=== PATIENT | female | born 1980 | race African-American/Black ===

== ENCOUNTER 2016-03-15 01:34 | Emergency (ER) | payer SELFPAY ==
[~2016-03-15] VITALS: Ht 170.2 cm; Wt 131.5 kg
[~2016-03-15 01:34] MED LIST: HYDR-2666 PO; HYDR12.53 PO; HYDR50TA6 PO; IBUP100T8 PO; METF500T4 PO; RIVA10TA PO
[2016-03-15 02:03] LABS: BASO % 0 % (0-3); EOS % 2 % (0-3); HEMATOCRIT 36.8 % (36.0-47.0); HEMOGLOBIN 11.6 g/dL (12.0-15.5); LYMPH # 2.2 x10^3/uL (1.0-4.8); LYMPH % 39 % (24-48); MEAN CORPUSCULAR HEMOGLOBIN 24 pg (25-35); MEAN CORPUSCULAR HGB CONC 32 g/dL (31-37); MEAN CORPUSCULAR VOLUME 77 fL (79-100); MONO % 8 % (0-9); NEUT % 51 % (31-73); PLATELET COUNT 291 x10^3/uL (140-400); RED BLOOD COUNT 4.77 x10^6/uL (3.50-5.40); RED CELL DISTRIBUTION WIDTH 15.8 % (11.5-14.5); WHITE BLOOD COUNT 5.6 x10^3/uL (4.0-11.0)
[2016-03-15 02:15] LABS: CALCIUM 8.1 mg/dL (8.5-10.1); GFR 76.8; POTASSIUM 3.3 mmol/L (3.5-5.1)
[2016-03-15] MEDS ORDERED: methylPREDNISolone SOD SUCC PF 125 MG/2 ML VIAL. IV ONE (02:15)
[2016-03-15] MEDS ORDERED: AZIT1PAC7 PO (04:11)
[2016-03-15] MEDS ORDERED: PRED50TA PO (04:11)
[2016-03-15] MEDS ORDERED: BENZ100C PO (04:11)
--- NOTE | 2016-03-15 04:11 | PHYS DOC ---
Past Medical History Past Medical History: Asthma, Bronchitis, Diabetes-Type II, Hypertension, Migraines, Pneumonia Additional Past Medical Histor: pneumonia Past Surgical History: Cholecystectomy, , Tubal ligation, Other Additional Past Surgical Histo: d & c Alcohol Use: None Drug Use: None Adult General Chief Complaint Chief Complaint: ASTHMA HPI HPI This is a 35 old female who states she's had persisting cough for the last several days and worsening of her asthma. Patient states she has never been intubated before. She does state she has been hospitalized once for her asthma. She has been using her breathing treatments at home with only mild relief. She denies any chest pain. She denies any fever or chills. She is having difficulty speaking complete sentences and is in moderate respiratory distress. Review of Systems Review of Systems Constitutional: Denies fever or chills [] Eyes: Denies change in visual acuity, redness, or eye pain [] HENT: Denies nasal congestion or sore throat [] Respiratory: Has cough, has shortness of breath [] Cardiovascular: No additional information not addressed in HPI [] GI: Denies abdominal pain, nausea, vomiting, bloody stools or diarrhea [] : Denies dysuria or hematuria [] Musculoskeletal: Denies back pain or joint pain [] Integument: Denies rash or skin lesions [] Neurologic: Denies headache, focal weakness or sensory changes [] Endocrine: Denies polyuria or polydipsia [] Current Medications Current Medications Current Medications Medications (Trade) Dose Ordered Sig/Octavio Start Time Stop Time Status Last Admin Dose Admin Methylprednisolone Sodium Succinate (Solu-Medrol 125mg Vial) 125 mg 1X ONCE 03/15/16 02:15 03/15/16 02:16 DC 03/15/16 02:47 125 MG Allergies Allergies Allergies Coded Allergies Type Severity Reaction Last Updated Verified Penicillins Allergy Intermediate Rash 01/20/15 No amoxicillin Allergy Intermediate 01/20/15 Yes morphine Allergy Intermediate 01/20/15 Yes diphenhydramine HCl Adverse Reaction Intermediate rash on iv area 09/22/15 No Physical Exam Physical Exam Constitutional: Well developed, well nourished, no acute distress, non-toxic appearance. [] HENT: Normocephalic, atraumatic, bilateral external ears normal, oropharynx moist, no oral exudates, nose normal. [] Eyes: PERRLA, EOMI, conjunctiva normal, no discharge. [] Neck: Normal range of motion, no tenderness, supple, no stridor. [] Cardiovascular:Heart rate regular rhythm, no murmur [] Lungs & Thorax: Tachynpea, moderate respiratory distress, diffuse expiratory wheezing bilaterally [] Abdomen: Bowel sounds normal, soft, no tenderness, no masses, no pulsatile masses. [] Skin: Warm, dry, no erythema, no rash. [] Back: No tenderness, no CVA tenderness. [] Extremities: No tenderness, no cyanosis, no clubbing, ROM intact, no edema. [] Neurologic: Alert and oriented X 3, normal motor function, normal sensory function, no focal deficits noted. [] Psychologic: Affect normal, judgement normal, mood normal. [] Current Patient Data Vital Signs Vital Signs Date Time Temp Pulse Resp B/P Pulse Ox O2 Delivery O2 Flow Rate FiO2 03/15/16 04:15 68 117/56 98 Room Air 03/15/16 03:30 15 03/15/16 01:55 2.0 03/15/16 01:45 98.1 98.1 Lab Values Laboratory Tests Test 03/15/16 01:45 03/15/16 02:40 White Blood Count 5.6x10^3/uL (4.0-11.0) Red Blood Count 4.77x10^6/uL (3.50-5.40) Hemoglobin 11.6g/dL (12.0-15.5) L Hematocrit 36.8% (36.0-47.0) Mean Corpuscular Volume 77fL (79-100) L Mean Corpuscular Hemoglobin 24pg (25-35) L Mean Corpuscular Hemoglobin Concent 32g/dL (31-37) Red Cell Distribution Width 15.8% (11.5-14.5) H Platelet Count 291x10^3/uL (140-400) Neutrophils (%) (Auto) 51% (31-73) Lymphocytes (%) (Auto) 39% (24-48) Monocytes (%) (Auto) 8% (0-9) Eosinophils (%) (Auto) 2% (0-3) Basophils (%) (Auto) 0% (0-3) Neutrophils # (Auto) 2.8x10^3uL (1.8-7.7) Lymphocytes # (Auto) 2.2x10^3/uL (1.0-4.8) Monocytes # (Auto) 0.5x10^3/uL (0.0-1.1) Eosinophils # (Auto) 0.1x10^3/uL (0.0-0.7) Basophils # (Auto) 0.0x10^3/uL (0.0-0.2) Sodium Level 142mmol/L (136-145) Potassium Level 3.3mmol/L (3.5-5.1) L Chloride Level 106mmol/L (98-107) Carbon Dioxide Level 25mmol/L (21-32) Anion Gap 11 (6-14) Blood Urea Nitrogen 13mg/dL (7-20) Creatinine 1.0mg/dL (0.6-1.0) Estimated GFR (Cockcroft-Gault) 76.8 Glucose Level 103mg/dL (70-99) H Calcium Level 8.1mg/dL (8.5-10.1) L Urine Test Negative (NEG) Laboratory Tests 03/15/16 01:45 Laboratory Tests 03/15/16 01:45 EKG EKG [] Radiology/Procedures Radiology/Procedures One view of the chest as interpreted by me does not reveal an acute cardiopulmonary process. Course & Med Decision Making Course & Med Decision Making Pertinent Labs and Imaging studies reviewed. (See chart for details) This 35-year-old female who is a known asthmatic and in moderate respiratory distress was put on a continuous nebulizer for one hour and felt much improved following the laser treatment. Patient was given 125 mg Solu-Medrol. Upon my reassessment after nebulizer treatment the patient feels much more improved and is relaxed and able to speak in complete sentences without any obvious respiratory distress. She states she feels comfortable to go home. She is saturating 100% on room air. I will discharge the patient home with a short course of steroids, Z-shanell, and tessalon perles for her cough. Her laboratory work up was unrevealing and her chest film was negative for any acute abnormality. She was discharged to follow closely with her primary doctor in the next several days. Dragon Disclaimer Dragon Disclaimer This electronic medical record was generated, in whole or in part, using a voice recognition dictation system. Departure Departure Impression: Primary Impression: Asthma exacerbation Disposition: HOME, SELF-CARE Condition: IMPROVED Referrals: SPIKE GREEN MD (PCP) Patient Instructions: Asthma, Adult, [id number] Additional Instructions: Please follow up with your primary doctor and take your steroids as prescribed. Return to the ER if you develop any worsening of your symptoms. Continue to use your nebulizer and inhaler as needed. Scripts Benzonatate (Tessalon Perle)100 Mg [id number] Mg PO TID PRN COUGH #15 CAP Prov:SRAVANTHI BAÑUELOS DO 03/15/16 Azithromycin (Azithromycin Packet)1 Gm Packet1 Packet PO ONCE #1 PACKET Prov:SRAVANTHI BAÑUELOS DO 03/15/16 Prednisone 50 Mg Tablet1 Tab PO DAILY #5 TAB Prov:SRAVANTHI BAÑUELOS DO 03/15/16 SRAVANTHI BAÑUELOS DO Mar 15, 2016 04:11
[2016-03-15 04:15] VITALS: BP 117/56
[2016-03-15 04:28] LABS: NEG OBC UR NEG; POS OBC UR POS
--- NOTE | 2016-03-15 07:45 | RAD ---
Indication shortness of breath. Asthma. A single view of the chest was obtained. Comparison is made to a study 2 months earlier. Heart and pulmonary vessels are normal. The lungs are clear. There has not been a significant change compared to the prior exam. IMPRESSION: No acute or focal process. No significant change
== END 2016-03-15 04:25 | disposition home or self-care (01) ==
LOC: ER 01:34
DX: J45.901 Unspecified asthma with (acute) exacerbation (principal); E11.9 Type 2 diabetes mellitus without complications; I10 Essential (primary) hypertension; G43.909 Migraine, unspecified, not intractable, without status migrainosus; Z87.01 Personal history of pneumonia (recurrent); Z90.49 Acquired absence of other specified parts of digestive tract; Z98.51 Tubal ligation status; Z88.0 Allergy status to penicillin; Z88.1 Allergy status to other antibiotic agents; Z88.5 Allergy status to narcotic agent; Z88.8 Allergy status to other drugs, medicaments and biological substances
CPT/HCPCS: 36415; 71010; 80048; 81025; 85027; 94644; 96374; 99285; J2930; 94640

== ENCOUNTER 2016-04-18 23:27 | Emergency (ER) | payer OTHER ==
[~2016-04-18] VITALS: Ht 165.1 cm; Wt 131.5 kg
[~2016-04-18 23:27] MED LIST changes: +AZIT1PAC7 PO; +BENZ100C PO; +HYDR-971 PO; +NITR100C62 PO; +PRED50TA PO
[2016-04-19] MEDS ORDERED: FENTANYL PF 100 MCG/2 ML VIAL. IV ONE (00:15)
[2016-04-19] MEDS ORDERED: PROCHLORPERAZINE 10 MG/2 ML VIAL. IV ONE (00:15)
[2016-04-19] MEDS ORDERED: KETOROLAC TROMETHAMINE 30 MG/ML SYRINGE. IV ONE (00:15)
--- NOTE | 2016-04-19 00:47 | PHYS DOC ---
Past Medical History Past Medical History: Asthma, Bronchitis, Diabetes-Type II, Hypertension, Migraines, Pneumonia Additional Past Medical Histor: pneumonia Past Surgical History: Cholecystectomy, , Tubal ligation, Other Additional Past Surgical Histo: d & c Alcohol Use: None Drug Use: None Adult General Chief Complaint Chief Complaint: HEADACHE HPI HPI Patient is a 35 year old female who presents with intermittent headache for the past 1.5 week. States this headache is gradual in onset and returned after workup and treatment 2 days ago. She did have a period of improvement 2 days ago after evaluation and treatment here. She has associated photophobia and mild dizziness. States the symptoms are typical of her migraine symptoms. She denies vision changes, fever or chills, nausea or vomiting, numbness, tingling, weakness. States her symptoms are not resolved with home hydrocodone or ibuprofen. States she was not able to get in with her primary care doctor or neurologist for another week. Review of Systems Review of Systems Constitutional: Denies fever or chills [] Eyes: Denies change in visual acuity, redness, or eye pain [] HENT: Denies nasal congestion or sore throat [] Respiratory: Denies cough or shortness of breath [] Cardiovascular: No additional information not addressed in HPI [] GI: Denies abdominal pain, nausea, vomiting, bloody stools or diarrhea [] : Denies dysuria or hematuria [] Musculoskeletal: Denies back pain or joint pain [] Integument: Denies rash or skin lesions [] Neurologic: Denies focal weakness or sensory changes [] Endocrine: Denies polyuria or polydipsia [] Current Medications Current Medications Current Medications Medications (Trade) Dose Ordered Sig/Octavio Start Time Stop Time Status Last Admin Dose Admin Fentanyl Citrate (Fentanyl 2ml Vial) 75 mcg 1X ONCE 04/19/16 00:15 04/19/16 00:16 DC 04/19/16 00:41 75 MCG Ketorolac Tromethamine (Toradol) 15 mg 1X ONCE 04/19/16 00:15 04/19/16 00:16 DC 04/19/16 00:42 15 MG Prochlorperazine Edisylate (Compazine) 10 mg 1X ONCE 04/19/16 00:15 04/19/16 00:16 DC 04/19/16 00:42 10 MG Allergies Allergies Allergies Coded Allergies Type Severity Reaction Last Updated Verified Penicillins Allergy Intermediate Rash 01/20/15 No amoxicillin Allergy Intermediate 01/20/15 Yes morphine Allergy Intermediate 01/20/15 Yes diphenhydramine HCl Adverse Reaction Intermediate rash on iv area 09/22/15 No Physical Exam Physical Exam Constitutional: Well developed, well nourished, no acute distress, non-toxic appearance. [] HENT: Normocephalic, atraumatic, bilateral external ears normal, oropharynx moist, no oral exudates, nose normal. [] Eyes: PERRLA, EOMI. [] Neck: Normal range of motion, supple. [] Cardiovascular:Heart rate regular rhythm [] Lungs & Thorax: Bilateral breath sounds clear to auscultation [] Abdomen: Bowel sounds normal, soft, no tenderness. [] Skin: Warm, dry, no erythema, no rash. [] Back: Normal range of motion. [] Extremities: ROM intact, no edema. Ambulatory with a steady gait [] Neurologic: Alert and oriented X 3, normal motor function, normal sensory function, no focal deficits noted, cranial nerves II through XII intact, normal finger to nose. [] Psychologic: Affect normal, judgement normal, mood normal. [] Current Patient Data Vital Signs Vital Signs Date Time Temp Pulse Resp B/P Pulse Ox O2 Delivery O2 Flow Rate FiO2 04/19/16 00:41 16 04/18/16 23:44 98.3 57 103/54 96 Room Air 98.3 Course & Med Decision Making Course & Med Decision Making She is feeling much better after medications and would like to go home. Return precautions given. She understands and agrees with plan. Dragon Disclaimer Sheri Disclaimer This electronic medical record was generated, in whole or in part, using a voice recognition dictation system. Departure Departure Impression: Primary Impression: Headache Disposition: 01 HOME, SELF-CARE Condition: STABLE Referrals: SPIKE GREEN MD (PCP) Patient Instructions: Recurrent Migraine Headache, [id number] Additional Instructions: Follow-up with your primary care doctor and neurologist. Return for concerns. Problem Qualifiers Primary Impression: Headache Headache type: unspecified Headache chronicity pattern: episodic headache Intractability: not intractable Qualified Code: R51 - Headache Bo SILVA MD Apr 19, 2016 00:47
[2016-04-19 01:43] VITALS: BP 100/59
== END 2016-04-19 01:50 | disposition home or self-care (01) ==
LOC: ER 23:27
DX: R51 Headache (principal); R42 Dizziness and giddiness; H53.149 Visual discomfort, unspecified; G43.909 Migraine, unspecified, not intractable, without status migrainosus; E11.9 Type 2 diabetes mellitus without complications; I10 Essential (primary) hypertension; J45.909 Unspecified asthma, uncomplicated; Z88.0 Allergy status to penicillin; Z88.1 Allergy status to other antibiotic agents; Z88.8 Allergy status to other drugs, medicaments and biological substances
CPT/HCPCS: 96374; 96375; 99284; J0780; J1885; J3010

== ENCOUNTER 2016-06-14 19:13 | Emergency (ER) | payer OTHER ==
[~2016-06-14] VITALS: Ht 162.6 cm; Wt 131.5 kg
[2016-06-14] MEDS ORDERED: PREDNISONE 10 MG TABLET PO ONE (19:15)
[2016-06-14] MEDS ORDERED: IPRATRPIUM/ALBUTEROL 0.5/2.5MG 3 ML NEBU. NEB ONE (19:15)
[2016-06-14] MEDS ORDERED: ALBUTEROL SULFATE 2.5 MG/3 ML NEBU. ONE (19:20)
[2016-06-14 19:31] LABS: BASO # 0.1 x10^3/uL (0.0-0.2); BASO % 1 % (0-3); EOS % 2 % (0-3); HEMATOCRIT 36.5 % (36.0-47.0); HEMOGLOBIN 11.5 g/dL (12.0-15.5); LYMPH # 3.4 x10^3/uL (1.0-4.8); LYMPH % 42 % (24-48); MEAN CORPUSCULAR HEMOGLOBIN 24 pg (25-35); MEAN CORPUSCULAR HGB CONC 32 g/dL (31-37); MEAN CORPUSCULAR VOLUME 77 fL (79-100); MONO % 6 % (0-9); NEUT % 50 % (31-73); PLATELET COUNT 300 x10^3/uL (140-400); RED BLOOD COUNT 4.76 x10^6/uL (3.50-5.40); RED CELL DISTRIBUTION WIDTH 15.2 % (11.5-14.5); WHITE BLOOD COUNT 8.1 x10^3/uL (4.0-11.0)
--- NOTE | 2016-06-14 19:33 | PHYS DOC ---
Past Medical History Past Medical History: Asthma, Bronchitis, Diabetes-Type II, Hypertension, Migraines, Pneumonia Additional Past Medical Histor: pneumonia Past Surgical History: Cholecystectomy, , Tubal ligation, Other Additional Past Surgical Histo: d & c Alcohol Use: None Drug Use: None Adult General Chief Complaint Chief Complaint: DYSPNEA/RESPIRATOY DISTRESS HPI HPI 35 yo F with hx of asthma presenting to the ED with soa that started about 24 hours ago. she tried 2 nebs at home without much relief. location lungs. nonradiating. she denies associated chest pain. it is worse with exertion. She denies ever being intubated. Review of systems is negative for abdominal pain nausea vomiting fevers or chills. All other review of systems is negative unless otherwise noted in history of present illness. Review of Systems Review of Systems SEE ABOVE. Current Medications Current Medications Current Medications Medications (Trade) Dose Ordered Sig/Octavio Start Time Stop Time Status Last Admin Dose Admin Albuterol Sulfate (Ventolin Neb Soln) 10 mg 1X ONCE 06/14/16 19:45 06/14/16 19:46 DC 06/14/16 19:52 10 MG Albuterol/ Ipratropium (Duoneb) 3 ml 1X ONCE 06/14/16 19:15 06/14/16 19:17 DC 06/14/16 19:31 3 ML Prednisone (Prednisone) 50 mg 1X ONCE 06/14/16 19:15 06/14/16 19:17 DC 06/14/16 19:24 50 MG Allergies Allergies Allergies Coded Allergies Type Severity Reaction Last Updated Verified Penicillins Allergy Intermediate Rash 01/20/15 No amoxicillin Allergy Intermediate 01/20/15 Yes morphine Allergy Intermediate 01/20/15 Yes diphenhydramine HCl Adverse Reaction Intermediate rash on iv area 09/22/15 No Physical Exam Physical Exam Constitutional: Well developed, well nourished, pt is visibly dyspneic and is only speaking in one word sentences. HENT: Normocephalic, atraumatic, bilateral external ears normal, oropharynx moist, no oral exudates, nose normal. Eyes: PERRLA, EOMI, conjunctiva normal, no discharge. [] Neck: Normal range of motion, no tenderness, supple, no stridor. Cardiovascular:Heart rate regular rhythm, no murmur Lungs & Thorax: minimal breath sounds present with prolonged expiratory phase. Abdomen: Bowel sounds normal, soft, no tenderness, no masses, no pulsatile masses. Skin: Warm, dry, no erythema, no rash. [] Back: No tenderness, no CVA tenderness. Extremities: No tenderness, no cyanosis, no clubbing, ROM intact, no edema. [] Neurologic: Alert and oriented X 3, normal motor function, normal sensory function, no focal deficits noted. Psychologic: Affect normal, judgement normal, mood normal. Current Patient Data Vital Signs Vital Signs Date Time Temp Pulse Resp B/P Pulse Ox O2 Delivery O2 Flow Rate FiO2 06/14/16 19:30 95 Nasal Cannula 6.0 06/14/16 19:13 91.1 82 20 112/94 91.1 Lab Values Laboratory Tests Test 06/14/16 19:20 White Blood Count 8.1x10^3/uL (4.0-11.0) Red Blood Count 4.76x10^6/uL (3.50-5.40) Hemoglobin 11.5g/dL (12.0-15.5) L Hematocrit 36.5% (36.0-47.0) Mean Corpuscular Volume 77fL (79-100) L Mean Corpuscular Hemoglobin 24pg (25-35) L Mean Corpuscular Hemoglobin Concent 32g/dL (31-37) Red Cell Distribution Width 15.2% (11.5-14.5) H Platelet Count 300x10^3/uL (140-400) Neutrophils (%) (Auto) 50% (31-73) Lymphocytes (%) (Auto) 42% (24-48) Monocytes (%) (Auto) 6% (0-9) Eosinophils (%) (Auto) 2% (0-3) Basophils (%) (Auto) 1% (0-3) Neutrophils # (Auto) 4.1x10^3uL (1.8-7.7) Lymphocytes # (Auto) 3.4x10^3/uL (1.0-4.8) Monocytes # (Auto) 0.5x10^3/uL (0.0-1.1) Eosinophils # (Auto) 0.1x10^3/uL (0.0-0.7) Basophils # (Auto) 0.1x10^3/uL (0.0-0.2) Sodium Level 141mmol/L (136-145) Potassium Level 3.4mmol/L (3.5-5.1) L Chloride Level 105mmol/L (98-107) Carbon Dioxide Level 27mmol/L (21-32) Anion Gap 9 (6-14) Blood Urea Nitrogen 10mg/dL (7-20) Creatinine 1.0mg/dL (0.6-1.0) Estimated GFR (Cockcroft-Gault) 76.8 Glucose Level 115mg/dL (70-99) H Calcium Level 8.7mg/dL (8.5-10.1) Total Bilirubin 0.3mg/dL (0.2-1.0) Direct Bilirubin 0.1mg/dL (0.0-0.2) Aspartate Amino Transferase (AST) 29U/L (15-37) Alanine Aminotransferase (ALT) 30U/L (14-59) Alkaline Phosphatase 54U/L (46-116) Troponin I Quantitative < 0.017ng/mL (0.000-0.055) AI-Krk-C-Type Natriuretic Peptide 113pg/mL (0-124) Total Protein 7.7g/dL (6.4-8.2) Albumin 3.7g/dL (3.4-5.0) Lipase 176U/L (73-393) Laboratory Tests 06/14/16 19:20 Laboratory Tests 06/14/16 19:20 EKG EKG EKG shows sinus rhythm with regular rate. Normal intervals. Normal axis. ST segments are congruent. Not suggestive of ACS. Reviewed by myself.[] Radiology/Procedures Radiology/Procedures [] Course & Med Decision Making Course & Med Decision Making Pertinent Labs and Imaging studies reviewed. (See chart for details) [] 35-year-old female presenting with a severe asthma exacerbation today. The patient was given duo nebs and nebulized albuterol in the emergency department which improved her symptoms significantly. On reevaluation the patient was breathing comfortably on room air saturating 100% without any distress. CBC shows mild anemia. Chemistry panel unremarkable. The patient was in discharged home with a steroid burst to follow up with her PCP over the next 2-3 days for chronic asthma management. Dragon Disclaimer Dragon Disclaimer This electronic medical record was generated, in whole or in part, using a voice recognition dictation system. Departure Departure Impression: Primary Impression: Asthma exacerbation Disposition: HOME, SELF-CARE Referrals: SPIKE GREEN MD (PCP) Patient Instructions: Asthma Attacks, Prevention, Asthma, Adult Additional Instructions: Thank you for allowing us to participate in your care today. Followup with your primary care physician in 3 days if your symptoms do not improve. If you do not have a primary care provider you can ask for a list of our primary care providers. Return to the emergency department you have any new or concerning findings. This should be evaluated by the primary care physician and any necessary consulting services for continued management within a few days after discharge. Return to emergency room if you have any new or concerning symptoms including but not limited to fever, chills, nausea, vomiting, intractable pain, any new rashes, chest pain, shortness of air, uncontrolled bleeding, difficulty breathing, and/or vision loss. Scripts Prednisone 50 Mg [id number] Mg PO DAILY #4 TAB Prov:SEBASTIÁN DAY MD 06/14/16 SEBASTIÁN DAY MD Jun 14, 2016 19:33
[2016-06-14 19:44] LABS: CALCIUM 8.7 mg/dL (8.5-10.1); GFR 76.8; POTASSIUM 3.4 mmol/L (3.5-5.1)
[2016-06-14] MEDS ORDERED: ALBUTEROL SULFATE 2.5 MG/3 ML NEBU. CONT NEB ONE (19:45)
[2016-06-14 19:49] LABS: ALBUMIN 3.7 g/dL (3.4-5.0); DIRECT BILIRUBIN 0.1 mg/dL (0.0-0.2); TOTAL BILIRUBIN 0.3 mg/dL (0.2-1.0); TOTAL PROTEIN 7.7 g/dL (6.4-8.2)
[2016-06-14] MEDS ORDERED: PRED50TA PO (21:26)
[2016-06-14 21:30] VITALS: BP 150/91
--- NOTE | 2016-06-15 06:15 | EKG ---
[facility] [address] [place] [address] Test Date: 2016-06-14 Test Time: 19:28:42 Pat Name: FRANCIA GREEN Department: Room: Gender: F Feed Handler: : 1980 Requested By: SEBASTIÁN DAY Order Number: [id number] Reading MD: Measurements Intervals [place] Rate: 54 P: MO: QRS: 35 QRSD: 80 T: 42 QT: 384 QTc: 366 Interpretive Statements IRREGULAR RHYTHM, NO P-WAVE FOUND RI6.01 No previous ECG available for comparison
--- NOTE | 2016-06-15 07:41 | RAD ---
Exam: AP portable chest. History: Shortness of breath, asthma, chest pain. Comparison: None. Findings: The heart and mediastinal structures are within normal limits for size. Lungs are without infiltrate. No pneumothorax or pleural effusion is appreciated. Impression: 1. No acute cardiopulmonary process.
== END 2016-06-14 22:00 | disposition home or self-care (01) ==
LOC: ER 19:13
DX: J45.901 Unspecified asthma with (acute) exacerbation (principal); D64.9 Anemia, unspecified; E11.9 Type 2 diabetes mellitus without complications; I10 Essential (primary) hypertension; G43.909 Migraine, unspecified, not intractable, without status migrainosus; Z88.0 Allergy status to penicillin; Z88.1 Allergy status to other antibiotic agents; Z88.8 Allergy status to other drugs, medicaments and biological substances; Z88.5 Allergy status to narcotic agent; Z87.01 Personal history of pneumonia (recurrent)
CPT/HCPCS: 36415; 71010; 80048; 80076; 83690; 83880; 84484; 85027; 93005; 94250; 94644; 99285; J7512; J7620; 94640

== ENCOUNTER 2016-07-30 07:13 | Emergency (ER) | payer OTHER ==
[~2016-07-30] VITALS: Ht 167.6 cm; Wt 117.9 kg
--- NOTE | 2016-07-30 07:34 | PHYS DOC ---
Past Medical History Past Medical History: Asthma, Bronchitis, Diabetes-Type II, Hypertension, Migraines, Pneumonia Additional Past Medical Histor: pneumonia Past Surgical History: Cholecystectomy, , Tubal ligation, Other Additional Past Surgical Histo: d & c Alcohol Use: None Drug Use: None Adult General Chief Complaint Chief Complaint: ABDOMINAL PAIN HPI HPI Patient is a 35 year old female presents to the emergency department with a history of suprapubic abdominal pain. Patient also states she has had increase frequency of urination. Patient states she had nausea and vomiting 4 times in the last 24 hours. She denies fever, chills, diarrhea, or vaginal discharge. Patient states this has been going on for the last week denies taking anything for urinary frequency. Patient states she has had back pain as well, denies injury or trauma. Review of Systems Review of Systems Constitutional: Denies fever or chills [] Eyes: Denies change in visual acuity, redness, or eye pain [] HENT: Denies nasal congestion or sore throat [] Respiratory: Denies cough or shortness of breath [] Cardiovascular: No additional information not addressed in HPI [] GI: Denies abdominal pain, nausea, vomiting, bloody stools or diarrhea [] : dysuria denies hematuria [] Musculoskeletal: Denies back pain or joint pain [] Integument: Denies rash or skin lesions [] Neurologic: Denies headache, focal weakness or sensory changes [] Endocrine: Denies polyuria or polydipsia [] Allergies Allergies Allergies Coded Allergies Type Severity Reaction Last Updated Verified Penicillins Allergy Intermediate Rash 01/20/15 No amoxicillin Allergy Intermediate 01/20/15 Yes morphine Allergy Intermediate 01/20/15 Yes diphenhydramine HCl Adverse Reaction Intermediate rash on iv area 09/22/15 No Physical Exam Physical Exam Constitutional: Well developed, well nourished, no acute distress, non-toxic appearance. [] HENT: Normocephalic, atraumatic, bilateral external ears normal, oropharynx moist, no oral exudates, nose normal. [] Eyes: PERRLA, EOMI, conjunctiva normal, no discharge. [] Neck: Normal range of motion, no tenderness, supple, no stridor. [] Cardiovascular:Heart rate regular rhythm, no murmur [] Lungs & Thorax: Bilateral breath sounds clear to auscultation [] Abdomen: Bowel sounds hypoactive, soft, suprapubic tenderness, no masses, no pulsatile masses. [] Skin: Warm, dry, no erythema, no rash. [] Back: No tenderness, right > left CVA tenderness. [] Extremities: No tenderness, no cyanosis, no clubbing, ROM intact, no edema. [] Neurologic: Alert and oriented X 3, normal motor function, normal sensory function, no focal deficits noted. [] Psychologic: Affect normal, judgement normal, mood normal. [] Current Patient Data Vital Signs Vital Signs Date Time Temp Pulse Resp B/P (MAP) Pulse Ox O2 Delivery O2 Flow Rate FiO2 07/30/16 08:26 52 20 128/70 (89) 99 Room Air 07/30/16 07:20 97.6 97.6 Lab Values Laboratory Tests Test 07/30/16 07:20 Urine Collection Type Unknown Urine Color Yellow Urine Clarity Clear Urine pH 6.0 Urine Specific [place] 1.020 Urine Protein Negative mg/dL (NEG-TRACE) Urine Glucose (UA) Negative mg/dL (NEG) Urine Ketones (Stick) Negative mg/dL (NEG) Urine Blood Negative (NEG) Urine Nitrite Negative (NEG) Urine Bilirubin Negative (NEG) Urine Urobilinogen Dipstick 0.2 mg/dL (0.2 mg/dL) Urine Leukocyte Esterase Small (NEG) Urine RBC 0 /HPF (0-2) Urine WBC 5-10 /HPF (0-4) Urine Squamous Epithelial Cells Mod /LPF Urine Bacteria Moderate /HPF (0-FEW) EKG EKG [] Radiology/Procedures Radiology/Procedures [] Course & Med Decision Making Course & Med Decision Making Pertinent Labs and Imaging studies reviewed. (See chart for details) Patient is positive for urinary tract infection with small amount of leukocyte Estrace. Patient will be placed on Cipro as she has flank tenderness. She'll also provided with Zofran for nausea and vomiting. Patient will be encouraged to use plenty of fluids such as water and cranberry juice. We'll also recommended avoid cranberry juice cocktail, carbonate beverages, caffeine, citrus fruits and alcohol sees her considered irritants to the bladder. Patient will be discharged home in stable condition. Signs symptoms to return back to emergency department as been provided. [] Dragon Disclaimer Dragon Disclaimer This electronic medical record was generated, in whole or in part, using a voice recognition dictation system. Departure Departure Impression: Primary Impression: Urinary tract infection Disposition: 01 HOME, SELF-CARE Condition: STABLE Referrals: SPIKE GREEN MD (PCP) Patient Instructions: Urinary Tract Infection, [id number] Additional Instructions: Activity as tolerated Medication as prescribed. Drink plenty of fluids such as water, and cranberry juice. Avoid cranberry juice cocktail, carbonate beverages, citrus fruits, alcohol, caffeine, and alcohol. Follow-up with your primary care physician in the next 7-10 days Return to emergency department as needed for signs and symptoms that become worse. Scripts Ondansetron (ZOFRAN ODT) 4 Mg Tab.rapdis 1 TAB SL Q8HRS, #10 TAB Prov: GRACIELA BROWN APRN 07/30/16 Ciprofloxacin Hcl (CIPRO) 500 Mg Tablet 1 TAB PO BID, #14 TAB Prov: GRACIELA BROWN APRN 07/30/16 GRACIELA BROWN APRN July 30, 2016 07:34
[2016-07-30 07:45] LABS: BILIRUBIN,URINE NEGATIVE (NEG); GLUCOSE,URINE NEGATIVE (NEG); NITRITE,URINE NEGATIVE (NEG); PROTEIN,URINE NEGATIVE (NEG-TRACE); UROBILINOGEN,URINE 0.2 mg/dL (0.2 mg/dL)
[2016-07-30 08:03] LABS: BACTERIA,URINE MODERATE /HPF (0-FEW); RBC,URINE 0 /HPF (0-2); SQUAMOUS EPITHELIAL CELL,UR MOD /LPF
[2016-07-30] MEDS ORDERED: CIPR500T94 PO (09:12)
[2016-07-30] MEDS ORDERED: ONDA4TAB10 SL (09:17)
[2016-07-30 09:40] VITALS: BP 112/60
== END 2016-07-30 09:45 | disposition home or self-care (01) ==
LOC: ER 07:13
DX: N39.0 Urinary tract infection, site not specified (principal); I10 Essential (primary) hypertension; E11.9 Type 2 diabetes mellitus without complications; G43.909 Migraine, unspecified, not intractable, without status migrainosus; J45.909 Unspecified asthma, uncomplicated; Z88.0 Allergy status to penicillin; Z88.1 Allergy status to other antibiotic agents; Z88.5 Allergy status to narcotic agent; Z88.8 Allergy status to other drugs, medicaments and biological substances; Z90.49 Acquired absence of other specified parts of digestive tract; Z98.890 Other specified postprocedural states; Z98.51 Tubal ligation status
CPT/HCPCS: 81001; 81025; 87086; 99284

== ENCOUNTER 2016-09-24 13:59 | Emergency (ER) | payer OTHER ==
[~2016-09-24] VITALS: Ht 167.6 cm; Wt 126.1 kg
[~2016-09-24 13:59] MED LIST changes: -AZIT1PAC7 PO; +AZIT1PAC9 PO; +CIPR500T94 PO; -HYDR-2666 PO; +HYDR-2758 PO; +ONDA4TAB10 SL
[2016-09-24 14:53] LABS: BASO % 1 % (0-3); EOS % 2 % (0-3); HEMATOCRIT 37.8 % (36.0-47.0); HEMOGLOBIN 12.1 g/dL (12.0-15.5); LYMPH # 2.4 x10^3/uL (1.0-4.8); LYMPH % 44 % (24-48); MEAN CORPUSCULAR HEMOGLOBIN 25 pg (25-35); MEAN CORPUSCULAR HGB CONC 32 g/dL (31-37); MEAN CORPUSCULAR VOLUME 77 fL (79-100); MONO % 6 % (0-9); NEUT % 48 % (31-73); PLATELET COUNT 233 x10^3/uL (140-400); RED CELL DISTRIBUTION WIDTH 15.7 % (11.5-14.5); WHITE BLOOD COUNT 5.6 x10^3/uL (4.0-11.0)
[2016-09-24] MEDS ORDERED: ALBUTEROL SULFATE 2.5 MG/3 ML NEBU. NEB ONE (15:00)
[2016-09-24 15:06] LABS: BILIRUBIN,URINE NEGATIVE (NEG); GLUCOSE,URINE NEGATIVE (NEG); NITRITE,URINE NEGATIVE (NEG); PH,URINE 6.5; PROTEIN,URINE 30 mg/dL (NEG-TRACE)
--- NOTE | 2016-09-24 15:09 | RAD ---
Indication shortness of breath. Cough. History of asthma. Chronic bronchitis. A single view of the chest was obtained. Comparison is made to an examination 06/14/2016. The heart and pulmonary vessels appear normal. The lungs are clear. There is no pleural fluid or pneumothorax. There has not been a significant change when compared to the previous exam. IMPRESSION: No acute or focal process. No significant change
[2016-09-24 15:17] LABS: CALCIUM 8.2 mg/dL (8.5-10.1); CREATININE 0.9 mg/dL (0.6-1.0); GFR 86.7; POTASSIUM 3.4 mmol/L (3.5-5.1)
[2016-09-24 15:23] LABS: RBC,URINE 0 /HPF (0-2)
[2016-09-24 15:24] LABS: BACTERIA,URINE FEW /HPF (0-FEW); SQUAMOUS EPITHELIAL CELL,UR MOD /LPF
[2016-09-24 15:25] LABS: ALBUMIN 3.7 g/dL (3.4-5.0); DIRECT BILIRUBIN 0.1 mg/dL (0.0-0.2); TOTAL BILIRUBIN 0.3 mg/dL (0.2-1.0); TOTAL PROTEIN 7.4 g/dL (6.4-8.2)
--- NOTE | 2016-09-24 15:39 | EKG ---
[facility] [address] [place] [address] Test Date: 2016-09-24 Test Time: 14:30:01 Pat Name: FRANCIA GREEN Department: Room: Gender: F Professor Of Voice: : 1980 Requested By: SEBASTIÁN DAY Order Number: [id number] Reading MD: Measurements Intervals [place] Rate: 101 P: 90 MD: 146 QRS: 79 QRSD: 76 T: 52 QT: 338 QTc: 439 Interpretive Statements SINUS TACHYCARDIA NO SPECIFIC ECG ABNORMALITIES RI6.01 No previous ECG available for comparison
[2016-09-24] MEDS ORDERED: IOHEXOL 300 MG/ML 75 ML VIAL IV ONE (15:45)
[2016-09-24] MEDS ORDERED: CONTRAST GIVEN MC PRN (15:45)
[2016-09-24] MEDS ORDERED: ACETAMINOPHEN 325 MG TABLET. PO ONE (16:00)
--- NOTE | 2016-09-24 16:09 | RAD ---
Indication right lower quadrant pain. Nausea and vomiting. Duration of symptoms for weeks. Axial images of the abdomen and pelvis were obtained. Approximately 75 cc of Omnipaque 300 was administered intravenously. No oral contrast was administered. No prior CT imaging of the abdomen or pelvis is available. The lung bases are clear. The liver and spleen appear unremarkable. Clips are seen in the gallbladder fossa. No adrenal masses are seen. There is a low-density mass associated with the right kidney most compatible with a small cyst. No pancreatic pathology is seen. An acute finding in the abdomen is not apparent. The appendix is seen in the right lower quadrant and appears unremarkable. Acute or significant finding in the pelvis is not seen. IMPRESSION: No acute finding seen in the abdomen or pelvis
--- NOTE | 2016-09-24 16:35 | PHYS DOC ---
Past Medical History Past Medical History: Asthma, Bronchitis, Diabetes-Type II, Hypertension, Migraines, Pneumonia Additional Past Medical Histor: pneumonia Past Surgical History: Cholecystectomy, , Tubal ligation, Other Additional Past Surgical Histo: d & c Alcohol Use: Occasionally Drug Use: Marijuana Social History Narrative: daily use Adult General Chief Complaint Chief Complaint: SHORTNESS OF BREATH HPI HPI 35-year-old female presenting to the emergency department today with chest pain shortness of breath and abdominal pain in her right lower quadrant associated with nausea and vomiting. The pain in her chest is sharp moderate intermittent nonradiating without alleviating factors. The patient denies unilateral leg swelling hemoptysis family or personal history of blood clotting disorders. The pt denies recent immobilization or surgery. She also reports a history of a swollen appendix. She has been coughing and has a pleuritic chest pain. Review of systems is positive for chest pain shortness of breath abdominal pain nausea vomiting. neg for fevers chills confusion lethargy cyanosis or numbness weakness or tingling. All other review of systems is negative unless otherwise noted in history of present illness. ED course: 35-year-old female presenting to the emergency department today with multiple complaints. Afebrile with mildly fast heart rate however the patient is anxious appearing. Respiratory rate recorded at 28. This is a voluntary respiratory rate. She is not dyspneic on appearance. She appears to be anxious. Saturating well with mild hypertension. EKG unremarkable. Abdomen mild tachycardia.EKG shows sinus rhythm with mildly tachy rate. Normal intervals. Normal axis. ST segments are congruent. Not suggestive of ACS. Reviewed by myself. Chest x-ray unremarkable CT the abdomen pelvis negative. Blood work unremarkable. Patient received a DuoNeb in the emergency department. On reexamination she was feeling better and subsequent discharged home. The patient was then discharged home in stable condition to follow up with their primary care physician over the next 2-3 days. They were to return if their symptoms worsened or if they were concerned for any reason. [id number] discharge instructions and return precautions were given. Patient's questions were answered to their satisfaction. Patient is comfortable plan. Review of Systems Review of Systems SEE ABOVE. Current Medications Current Medications Current Medications Medications (Trade) Dose Ordered Sig/Octavio Start Time Stop Time Status Last Admin Dose Admin Acetaminophen (Tylenol) 650 mg 1X ONCE 09/24/16 16:00 09/24/16 16:01 DC 09/24/16 16:17 650 MG Albuterol Sulfate (Ventolin Neb Soln) 2.5 mg 1X ONCE 09/24/16 15:00 09/24/16 15:01 DC 09/24/16 14:59 2.5 MG Info (Do NOT chart on this entry -- for MONITORING) 1 each PRN DAILY PRN 09/24/16 15:45 09/24/16 17:08 DC Iohexol (Omnipaque 300 Mg/ml) 75 ml 1X ONCE 09/24/16 15:45 09/24/16 15:46 DC 09/24/16 15:46 75 ML Ondansetron HCl (Zofran Odt) 4 mg 1X ONCE 09/24/16 17:00 09/24/16 17:01 DC 09/24/16 17:00 4 MG Allergies Allergies Allergies Coded Allergies Type Severity Reaction Last Updated Verified Penicillins Allergy Intermediate Rash 01/20/15 No amoxicillin Allergy Intermediate 01/20/15 Yes morphine Allergy Intermediate 01/20/15 Yes diphenhydramine HCl Adverse Reaction Intermediate rash on iv area 09/22/15 No Physical Exam Physical Exam SEE ABOVE Constitutional: Well developed, well nourished, no acute distress, non-toxic appearance. [] Anxious appearing but not in any distress. HENT: Normocephalic, atraumatic, bilateral external ears normal, oropharynx moist, no oral exudates, nose normal. [] Eyes: PERRLA, EOMI, conjunctiva normal, no discharge. [] Neck: Normal range of motion, no tenderness, supple, no stridor. [] Cardiovascular:Heart rate regular rhythm, no murmur [] Lungs & Thorax: Bilateral breath sounds clear to auscultation [] Abdomen: Bowel sounds normal, soft, no tenderness, no masses, no pulsatile masses. [] Skin: Warm, dry, no erythema, no rash. [] Back: No tenderness, no CVA tenderness. [] Extremities: No tenderness, no cyanosis, no clubbing, ROM intact, no edema. [] Neurologic: Alert and oriented X 3, normal motor function, normal sensory function, no focal deficits noted. [] Psychologic: Affect normal, judgement normal, mood normal. [] Current Patient Data Vital Signs Vital Signs Date Time Temp Pulse Resp B/P (MAP) Pulse Ox O2 Delivery O2 Flow Rate FiO2 09/24/16 16:48 59 123/61 (81) 99 Room Air 09/24/16 14:24 98.7 28 98.7 Lab Values Laboratory Tests Test 09/24/16 14:30 09/24/16 14:45 White Blood Count 5.6 x10^3/uL (4.0-11.0) Red Blood Count 4.90 x10^6/uL (3.50-5.40) Hemoglobin 12.1 g/dL (12.0-15.5) Hematocrit 37.8 % (36.0-47.0) Mean Corpuscular Volume 77 fL (79-100) L Mean Corpuscular Hemoglobin 25 pg (25-35) Mean Corpuscular Hemoglobin Concent 32 g/dL (31-37) Red Cell Distribution Width 15.7 % (11.5-14.5) H Platelet Count 233 x10^3/uL (140-400) Neutrophils (%) (Auto) 48 % (31-73) Lymphocytes (%) (Auto) 44 % (24-48) Monocytes (%) (Auto) 6 % (0-9) Eosinophils (%) (Auto) 2 % (0-3) Basophils (%) (Auto) 1 % (0-3) Neutrophils # (Auto) 2.7 x10^3uL (1.8-7.7) Lymphocytes # (Auto) 2.4 x10^3/uL (1.0-4.8) Monocytes # (Auto) 0.3 x10^3/uL (0.0-1.1) Eosinophils # (Auto) 0.1 x10^3/uL (0.0-0.7) Basophils # (Auto) 0.0 x10^3/uL (0.0-0.2) Sodium Level 141 mmol/L (136-145) Potassium Level 3.4 mmol/L (3.5-5.1) L Chloride Level 106 mmol/L (98-107) Carbon Dioxide Level 25 mmol/L (21-32) Anion Gap 10 (6-14) Blood Urea Nitrogen 11 mg/dL (7-20) Creatinine 0.9 mg/dL (0.6-1.0) Estimated GFR (Cockcroft-Gault) 86.7 Glucose Level 105 mg/dL (70-99) H Calcium Level 8.2 mg/dL (8.5-10.1) L Total Bilirubin 0.3 mg/dL (0.2-1.0) Direct Bilirubin 0.1 mg/dL (0.0-0.2) Aspartate Amino Transferase (AST) 37 U/L (15-37) Alanine Aminotransferase (ALT) 31 U/L (14-59) Alkaline Phosphatase 46 U/L (46-116) Troponin I Quantitative < 0.017 ng/mL (0.000-0.055) Total Protein 7.4 g/dL (6.4-8.2) Albumin 3.7 g/dL (3.4-5.0) Lipase 179 U/L (73-393) Urine Color Yellow Urine Clarity Clear Urine pH 6.5 Urine Specific Metaline 1.025 Urine Protein 30 mg/dL (NEG-TRACE) Urine Glucose (UA) Negative mg/dL (NEG) Urine Ketones (Stick) Negative mg/dL (NEG) Urine Blood Negative (NEG) Urine Nitrite Negative (NEG) Urine Bilirubin Negative (NEG) Urine Urobilinogen Dipstick 1.0 mg/dL (0.2 mg/dL) Urine Leukocyte Esterase Negative (NEG) Urine RBC 0 /HPF (0-2) Urine WBC 1-4 /HPF (0-4) Urine Squamous Epithelial Cells Mod /LPF Urine Bacteria Few /HPF (0-FEW) Urine Mucus Mod /LPF Laboratory Tests 09/24/16 14:30 Laboratory Tests 09/24/16 14:30 EKG EKG [] Radiology/Procedures Radiology/Procedures [] Course & Med Decision Making Course & Med Decision Making Pertinent Labs and Imaging studies reviewed. (See chart for details) [] Dragon Disclaimer Dragon Disclaimer This electronic medical record was generated, in whole or in part, using a voice recognition dictation system. Departure Departure Impression: Primary Impression: Shortness of breath Disposition: 01 HOME, SELF-CARE Admitting Physician: Aliya Dhillon Condition: STABLE Referrals: NO PCP (PCP) OLY JEFFRIES MD Patient Instructions: Shortness of Breath Additional Instructions: Thank you for allowing us to participate in your care today. Followup with your primary care physician in 3 days if your symptoms do not improve. Call your Primary Doctor tomorrow and inform them of your visit today. If you do not have a primary care provider you can ask for a list of our primary care providers. Return to the emergency department you have any new or concerning findings. This should be evaluated by the primary care physician and any necessary consulting services for continued management within a few days after discharge. Return to emergency room if you have any new or concerning symptoms including but not limited to fever, chills, nausea, vomiting, intractable pain, any new rashes, chest pain, shortness of air, uncontrolled bleeding, difficulty breathing, and/or vision loss. Scripts Famotidine (PEPCID) 40 Mg Tablet 40 MG PO HS, #14 TAB 0 Refills Prov: SEBASTIÁN DAY MD 09/24/16 Ibuprofen (IBUPROFEN) 200 Mg Tablet 200 MG PO PRN Q6HRS Y for INFLAMMATION, #30 TAB Prov: SEBASTIÁN DAY MD 09/24/16 Ondansetron (ZOFRAN ODT) 4 Mg Tab.rapdis 1 TAB SL PRN Q8HRS Y for NAUSEA, #6 TAB Prov: SEBASTIÁN DAY MD 09/24/16 SEBASTIÁN DAY MD Sep 24, 2016 16:35
[2016-09-24 16:48] VITALS: BP 123/61
[2016-09-24] MEDS ORDERED: FAMO40TA57 PO (16:55)
[2016-09-24] MEDS ORDERED: ONDA4TAB10 SL (16:55)
[2016-09-24] MEDS ORDERED: IBUP200T77 PO (16:55)
[2016-09-24] MEDS ORDERED: ONDANSETRON ODT 4 MG TAB.RAPDIS. PO ONE (17:00)
== END 2016-09-24 17:07 | disposition home or self-care (01) ==
LOC: ER 13:59
DX: R06.02 Shortness of breath (principal); R10.31 Right lower quadrant pain; R11.2 Nausea with vomiting, unspecified; E11.9 Type 2 diabetes mellitus without complications; J45.909 Unspecified asthma, uncomplicated; I10 Essential (primary) hypertension; G43.909 Migraine, unspecified, not intractable, without status migrainosus; F12.10 Cannabis abuse, uncomplicated; Z98.890 Other specified postprocedural states; Z90.49 Acquired absence of other specified parts of digestive tract; Z98.51 Tubal ligation status; Z88.0 Allergy status to penicillin; Z88.1 Allergy status to other antibiotic agents; Z88.5 Allergy status to narcotic agent; Z88.8 Allergy status to other drugs, medicaments and biological substances
CPT/HCPCS: 36415; 71010; 74177; 80048; 80076; 81001; 83690; 84484; 85027; 93005; 94640; 99285; J7613; Q0162; Q9967

== ENCOUNTER 2016-11-25 02:25 | Emergency (ER) | payer OTHER ==
[~2016-11-25] VITALS: Ht 167.6 cm; Wt 126.1 kg
[~2016-11-25 02:25] MED LIST changes: +FAMO40TA57 PO; +IBUP200T77 PO
--- NOTE | 2016-11-25 02:45 | PHYS DOC ---
Past Medical History Past Medical History: Asthma, Bronchitis, Diabetes-Type II, Hypertension, Migraines, Pneumonia Additional Past Medical Histor: pneumonia Past Surgical History: Cholecystectomy, , Tubal ligation, Other Additional Past Surgical Histo: d & c Additional Information: no tobacco use Alcohol Use: Occasionally Drug Use: Marijuana Adult General Chief Complaint Chief Complaint: SHORTNESS OF BREATH HPI HPI Patient is a 36 year old female who presents with cough and wheezing. She does not take prednisone daily; no nebulizer at home. Used her inhaler one hour ago. She had a fever on ; then started coughing and wheezing. Little sore throat. She has had increase cough and wheezing. No recent travel. Smoke THC almost daily but denied smoking today. Review of Systems Review of Systems Constitutional: POS fever or chills on Eyes: Denies change in visual acuity, redness, or eye pain HENT: POS nasal congestion or sore throat on Respiratory: POS cough and shortness of breath tonight Cardiovascular: No chest pain GI: Denies abdominal pain, nausea, vomiting, bloody stools or diarrhea : Denies dysuria or hematuria Musculoskeletal: Denies back pain or joint pain Integument: Denies rash or skin lesions Neurologic: Denies headache, focal weakness or sensory changes Current Medications Current Medications Current Medications Medications (Trade) Dose Ordered Sig/Octavio Start Time Stop Time Status Last Admin Dose Admin Albuterol/ Ipratropium (Duoneb) 3 ml 1X ONCE 11/25/16 03:00 11/25/16 03:01 UNV 11/25/16 02:57 3 ML Benzonatate (Tessalon Perle) 100 mg 1X ONCE 11/25/16 03:15 11/25/16 03:16 UNV 11/25/16 03:09 100 MG Dexamethasone Sodium Phosphate (Decadron) 10 mg 1X ONCE 11/25/16 03:00 11/25/16 03:02 DC 11/25/16 02:50 10 MG Allergies Allergies Allergies Coded Allergies Type Severity Reaction Last Updated Verified Penicillins Allergy Intermediate Rash 01/20/15 No amoxicillin Allergy Intermediate 01/20/15 Yes morphine Allergy Intermediate 01/20/15 Yes diphenhydramine HCl Adverse Reaction Intermediate rash on iv area 09/22/15 No Physical Exam Physical Exam Constitutional: Well developed, well nourished, no acute distress, non-toxic appearance. HENT: Normocephalic, atraumatic, anicteric membranes clear bilaterally without erythema, bilateral external ears normal, oropharynx moist, no oral exudates, nose normal. Eyes: PERRLA, EOMI, conjunctiva normal, no discharge. Neck: Normal range of motion, no tenderness, supple, no stridor. Cardiovascular:Heart rate regular rhythm, no murmur Lungs & Thorax: Bilateral breath sounds with end expiratory wheezing.coughing spasms. Abdomen: Bowel sounds normal, soft, no tenderness, no masses, no pulsatile masses. Skin: Warm, dry, no erythema, no rash. Back: No tenderness, no CVA tenderness. Extremities: No tenderness, no cyanosis, no clubbing, ROM intact, no edema. Neurologic: Alert and oriented X 3, normal motor function, normal sensory function, no focal deficits noted. Current Patient Data Vital Signs Vital Signs Date Time Temp Pulse Resp B/P (MAP) Pulse Ox O2 Delivery O2 Flow Rate FiO2 11/25/16 03:11 82 16 134/62 (86) 98 Room Air 11/25/16 02:41 98.1 98.1 Radiology/Procedures Radiology/Procedures CXR interpreted by myself at 0310 am with no acute infiltrate; no pleural effusion, no pneumothorax, no pneumomediastinum. Course & Med Decision Making Course & Med Decision Making Evaluated patient upon arrival. Last ED visit for asthma was September,. [place] here. Decadron IM. Initial WPF 170 and after two nebulized treatments her WPF was 360. Tessalon Pearles given for the cough. She drove herself. She is much improved at discharge. Minimal coughing now. No evidence of acute infection so no indication for antibiotics. Rx: medrol dose shanell; nebulizer w meds and inhaler refill provided and tessalon pearles. I have spoken with the patient and/or caregivers. I have explained the patient' s condition, diagnosis and treatment plan based on the information available to me at this time. I have answered the patient's and/or caregiver's questions and addressed any concerns. The patient and/or caregivers have as good an understanding of the patient's diagnosis, condition and treatment plan as can be expected at this point. The patient's condition is stable and appropriate for discharge from the emergency department. The patient will pursue further outpatient evaluation with the primary care physician or other designated or consulting physician as outlined in the discharge instructions. The patient and/or caregivers are agreeable to this plan of care and follow-up instructions have been explained in detail. The patient and/or caregivers have received these instructions in written format and have expressed an understanding of the discharge instructions. The patient and/or caregivers are aware that any significant change in condition or worsening of symptoms should prompt an immediate return to this or the closest emergency department or a call to 911. Sheri Disclaimer Dragon Disclaimer This electronic medical record was generated, in whole or in part, using a voice recognition dictation system. Departure Departure Impression: Primary Impression: Acute asthma exacerbation Disposition: HOME, SELF-CARE Condition: IMPROVED Referrals: NO PCP (PCP) Patient Instructions: Asthma, Acute Bronchospasm Additional Instructions: A prescription was provided for a nebulizer and medication. Use that while at home at least in the am and at night. If you are home all day use it every 4-6 hours until this flare clears. You need to take your prednisone. Contact your physician for a recheck. Scripts Benzonatate (TESSALON PERLE) 100 Mg Capsule 1 CAP PO TID Y for COUGH, #21 CAP Prov: CARMEN YANG MD 11/25/16 Ipratropium/Albuterol Sulfate (DUONEB 0.5-3(2.5) MG/3 ML) 3 Ml Ampul.neb 3 ML NEB QID Y for WHEEZING, #30 EACH Prov: CARMEN YANG MD 11/25/16 Albuterol Sulfate (PROAIR HFA INHALER) 8.5 Gm Hfa.aer.ad 2 PUFF INH PRN Q6HRS Y for SHORTNESS OF BREATH, #1 INHALER 0 Refills Prov: CARMEN YANG MD 11/25/16 Prednisone (PREDNISONE) 10 Mg Tablet 10 MG PO UD for PREDNISONE TAPER, #39 TAB 0 Refills Take 3 tablets by mouth twice a day for 3 days, then take 2 tablets by mouth twice a day for 3 days, then take 1 tablet by mouth twice a day for 3 days, then take 1 tablet by mouth daily x 3 days, then stop. Prov: CARMEN YANG MD 11/25/16 Problem Qualifiers Primary Impression: Acute asthma exacerbation Asthma severity: moderate persistent Qualified Codes: J45.41 - Moderate persistent asthma with (acute) exacerbation CARMEN YANG MD Nov 25, 2016 02:45
[2016-11-25] MEDS ORDERED: IPRATRPIUM/ALBUTEROL 0.5/2.5MG 3 ML NEBU. NEB ONE ×2 (03:00)
[2016-11-25] MEDS ORDERED: DEXAMETHASONE SOD PHOS 20 MG/5 ML VIAL. IM ONE (03:00)
[2016-11-25 03:11] VITALS: BP 134/62
[2016-11-25] MEDS ORDERED: BENZONATATE 100 MG CAPSULE. PO ONE (03:15)
[2016-11-25] MEDS ORDERED: PRED-220 PO (03:20)
[2016-11-25] MEDS ORDERED: PROAIR HFA8.5 GM INH (03:20)
[2016-11-25] MEDS ORDERED: IPRA3AMP NEB (03:20)
[2016-11-25] MEDS ORDERED: BENZ100C PO (03:20)
--- NOTE | 2016-11-25 08:01 | RAD ---
Chest radiograph 11/25/2016 4:38 AM Indication: Cough, wheezing Comparison: Chest radiograph 09/24/2016 Technique: Single portable upright frontal view of the chest is provided. Findings: Cardiomediastinal silhouette is within normal limits. No pleural effusions, pulmonary vascular congestion or pneumothorax. The lungs are clear. Osseous structures are normal. Impression: No acute cardiopulmonary process.
== END 2016-11-25 03:29 | disposition home or self-care (01) ==
LOC: ER 02:25
DX: J45.41 Moderate persistent asthma with (acute) exacerbation (principal); I10 Essential (primary) hypertension; E11.9 Type 2 diabetes mellitus without complications; Z88.0 Allergy status to penicillin; Z88.1 Allergy status to other antibiotic agents; Z88.8 Allergy status to other drugs, medicaments and biological substances; Z88.5 Allergy status to narcotic agent; Z79.899 Other long term (current) drug therapy; Z87.01 Personal history of pneumonia (recurrent)
CPT/HCPCS: 71010; 94250; 94640; 96372; 99284; J1100; J7620

== ENCOUNTER 2017-01-15 01:20 | Emergency (ER) | payer OTHER ==
[~2017-01-15] VITALS: Ht 167.6 cm; Wt 121.1 kg
[~2017-01-15 01:20] MED LIST changes: +IPRA3AMP NEB; +PRED-220 PO; +PROAIR HFA8.5 GM INH
[2017-01-15] MEDS ORDERED: HYDROmorphone 2 MG/ML VIAL IV/SQ PRN (01:45)
[2017-01-15 02:03] LABS: BILIRUBIN,URINE NEGATIVE (NEG); GLUCOSE,URINE NEGATIVE (NEG); NITRITE,URINE NEGATIVE (NEG); PROTEIN,URINE NEGATIVE (NEG-TRACE); UROBILINOGEN,URINE 0.2 mg/dL (0.2 mg/dL)
[2017-01-15] MEDS: IV NORMAL SALINE 1000ML BAG 1,000 ML IV SCH (02:08)
--- NOTE | 2017-01-15 02:12 | PHYS DOC ---
Past Medical History Past Medical History: Asthma, GERD, Migraines, Ovarian Cyst Additional Past Medical Histor: pneumonia Past Surgical History: Cholecystectomy, , Tubal ligation Additional Past Surgical Histo: x3 Alcohol Use: None Drug Use: Marijuana Social History Narrative: smokes marijuana occasionally Adult General Chief Complaint Chief Complaint: ABDOMINAL PAIN HPI HPI 36-year-old female presenting to the emergency department today with periumbilical abdominal pain and low back pain that is been intermittent over the past 3 weeks. She describes nausea with one nonbilious nonbloody episode of emesis every morning over the past 2 weeks. Her doctor today she may have "too much acid". She denies fevers or chills. She denies migratory pain. She denies diarrhea or blood in her stools. She denies being vaginal bleeding or recent exposure to STDs. She denies changes in vaginal discharge. Review of systems is negative for chest pain shortness of breath fevers chills. All other review of systems is negative unless otherwise noted in history of present illness. ED course: 36-year-old female presenting with periumbilical abdominal pain for about 3 weeks. Vital signs afebrile normal heart rate. Saturating on room air. Pertinent physical exam findings show soft nontender abdomen. IV established. Saline pain and nausea medication ordered. Blood work obtained. Urine test negative. Workup unremarkable. On reexamination the patient was feeling better. Repeat abdominal exam continues show soft nontender abdomen. Negative McBurney's point. Negative Berg sign. Patient has had multiple CTs in the past. The patient was then discharged home in stable condition to follow up with their primary care physician over the next 2-3 days. They were to return if their symptoms worsened or if they were concerned for any reason. Face-to- face discharge instructions and return precautions were given. Patient's questions were answered to their satisfaction. Patient is comfortable plan. Review of Systems Review of Systems SEE ABOVE. Current Medications Current Medications Current Medications Medications (Trade) Dose Ordered Sig/Octavio Start Time Stop Time Status Last Admin Dose Admin Famotidine (Pepcid) 20 mg 1X ONCE 01/15/17 01:45 01/15/17 01:46 DC 01/15/17 02:28 20 MG Hydromorphone HCl (Dilaudid) 0.5 mg PRN Q15MIN PRN 01/15/17 01:45 01/16/17 01:44 Ondansetron HCl (Zofran) 4 mg 1X ONCE 01/15/17 01:45 01/15/17 01:46 DC 01/15/17 02:28 4 MG Sodium Chloride 1,000 ml @ 1,000 mls/hr Q1H 01/15/17 01:45 01/15/17 02:44 DC 01/15/17 02:08 1,000 MLS/HR Allergies Allergies Allergies Coded Allergies Type Severity Reaction Last Updated Verified Penicillins Allergy Intermediate Rash 01/20/15 No amoxicillin Allergy Intermediate 01/20/15 Yes morphine Allergy Intermediate 01/20/15 Yes diphenhydramine HCl Adverse Reaction Intermediate rash on iv area 09/22/15 No Physical Exam Physical Exam SEE ABOVE Constitutional: Well developed, well nourished, no acute distress, non-toxic appearance. HENT: Normocephalic, atraumatic, bilateral external ears normal, oropharynx moist, no oral exudates, nose normal. [] Eyes: PERRLA, EOMI, conjunctiva normal, no discharge. [] Neck: Normal range of motion, no tenderness, supple, no stridor. Cardiovascular:Heart rate regular rhythm, no murmur [] Lungs & Thorax: Bilateral breath sounds clear to auscultation Abdomen: Soft nontender abdomen without rebound tenderness or guarding present. Negative McBurneys point. Negative Berg sign. No ecchymosis present. Skin: Warm, dry, no erythema, no rash. [] Back: No tenderness, no CVA tenderness. Extremities: No tenderness, no cyanosis, no clubbing, ROM intact, no edema. [] Neurologic: Alert and oriented X 3, normal motor function, normal sensory function, no focal deficits noted. Psychologic: Affect normal, judgement normal, mood normal. [] Current Patient Data Vital Signs Vital Signs Date Time Temp Pulse Resp B/P (MAP) Pulse Ox O2 Delivery O2 Flow Rate FiO2 01/15/17 02:33 89 01/15/17 02:21 13 133/69 (90) 99 Room Air 01/15/17 01:38 98.2 98.2 Lab Values Laboratory Tests Test 01/15/17 01:35 01/15/17 01:54 01/15/17 02:04 Urine Collection Type Unknown Urine Color Yellow Urine Clarity Clear Urine pH 6.0 Urine Specific [place] >=1.030 Urine Protein Negative mg/dL (NEG-TRACE) Urine Glucose (UA) Negative mg/dL (NEG) Urine Ketones (Stick) Negative mg/dL (NEG) Urine Blood Negative (NEG) Urine Nitrite Negative (NEG) Urine Bilirubin Negative (NEG) Urine Urobilinogen Dipstick 0.2 mg/dL (0.2 mg/dL) Urine Leukocyte Esterase Negative (NEG) Urine RBC Occ /HPF (0-2) Urine WBC 1-4 /HPF (0-4) Urine Squamous Epithelial Cells Occ /LPF Urine Bacteria Few /HPF (0-FEW) Urine Mucus Mod /LPF POC Urine HCG, Qualitative Hcg negative (Negative) White Blood Count 7.1 x10^3/uL (4.0-11.0) Red Blood Count 4.86 x10^6/uL (3.50-5.40) Hemoglobin 12.3 g/dL (12.0-15.5) Hematocrit 38.3 % (36.0-47.0) Mean Corpuscular Volume 79 fL (79-100) Mean Corpuscular Hemoglobin 25 pg (25-35) Mean Corpuscular Hemoglobin Concent 32 g/dL (31-37) Red Cell Distribution Width 15.6 % (11.5-14.5) H Platelet Count 261 x10^3/uL (140-400) Neutrophils (%) (Auto) 60 % (31-73) Lymphocytes (%) (Auto) 30 % (24-48) Monocytes (%) (Auto) 5 % (0-9) Eosinophils (%) (Auto) 5 % (0-3) H Basophils (%) (Auto) 1 % (0-3) Neutrophils # (Auto) 4.3 x10^3uL (1.8-7.7) Lymphocytes # (Auto) 2.1 x10^3/uL (1.0-4.8) Monocytes # (Auto) 0.4 x10^3/uL (0.0-1.1) Eosinophils # (Auto) 0.3 x10^3/uL (0.0-0.7) Basophils # (Auto) 0.0 x10^3/uL (0.0-0.2) Sodium Level 138 mmol/L (136-145) Potassium Level 3.6 mmol/L (3.5-5.1) Chloride Level 100 mmol/L (98-107) Carbon Dioxide Level 26 mmol/L (21-32) Anion Gap 12 (6-14) Blood Urea Nitrogen 13 mg/dL (7-20) Creatinine 0.9 mg/dL (0.6-1.0) Estimated GFR (Cockcroft-Gault) 86.2 BUN/Creatinine Ratio 14 (6-20) Glucose Level 120 mg/dL (70-99) H Calcium Level 9.1 mg/dL (8.5-10.1) Total Bilirubin 0.3 mg/dL (0.2-1.0) Aspartate Amino Transferase (AST) 29 U/L (15-37) Alanine Aminotransferase (ALT) 26 U/L (14-59) Alkaline Phosphatase 49 U/L (46-116) Total Protein 7.7 g/dL (6.4-8.2) Albumin 3.7 g/dL (3.4-5.0) Albumin/Globulin Ratio 0.9 (1.0-1.7) L Lipase 180 U/L (73-393) Laboratory Tests 01/15/17 02:04 Laboratory Tests 01/15/17 02:04 EKG EKG [] Radiology/Procedures Radiology/Procedures [] Course & Med Decision Making Course & Med Decision Making Pertinent Labs and Imaging studies reviewed. (See chart for details) [] Dragon Disclaimer Dragon Disclaimer This electronic medical record was generated, in whole or in part, using a voice recognition dictation system. Departure Departure Impression: Primary Impression: Abdominal pain Disposition: HOME, SELF-CARE Condition: STABLE Referrals: NO PCP (PCP) Patient Instructions: Abdominal Pain Additional Instructions: Thank you for allowing us to participate in your care today. Followup with your primary care physician in 3 days if your symptoms do not improve. Call your Primary Doctor tomorrow and inform them of your visit today. If you do not have a primary care provider you can ask for a list of our primary care providers. Return to the emergency department you have any new or concerning findings. This should be evaluated by the primary care physician and any necessary consulting services for continued management within a few days after discharge. Return to emergency room if you have any new or concerning symptoms including but not limited to fever, chills, nausea, vomiting, intractable pain, any new rashes, chest pain, shortness of air, uncontrolled bleeding, difficulty breathing, and/or vision loss. You may have been prescribed medication that can change in your level of thinking and ability to operate machinery. These medications include hydrocodone and Ativan. Also, Benadryl has been known to do this as well. Be sure to check with your pharmacist and ask if the medications you've prescribed can affect your level of consciousness. I recommend not operating heavy machinery or driving while on medication such as these. Scripts Hydrocodone Bit/Acetaminophen (HYDROCODONE-APAP 5-325 ) 1 Each Tablet 1 TAB PO PRN Q8HRS Y for sev, #8 TAB 0 Refills Prov: SEBASTIÁN DAY MD 01/15/17 Ondansetron (ZOFRAN ODT) 4 Mg Tab.rapdis 1 TAB SL PRN Q8HRS Y for NAUSEA, #6 TAB Prov: SEBASTIÁN DAY MD 01/15/17 SEBASTIÁN DAY MD Jan 15, 2017 02:12
[2017-01-15 02:14] LABS: BACTERIA,URINE FEW /HPF (0-FEW); RBC,URINE OCC /HPF (0-2); SQUAMOUS EPITHELIAL CELL,UR OCC /LPF
[2017-01-15 02:18] LABS: BASO % 1 % (0-3); EOS % 5 % (0-3); HEMATOCRIT 38.3 % (36.0-47.0); HEMOGLOBIN 12.3 g/dL (12.0-15.5); LYMPH # 2.1 x10^3/uL (1.0-4.8); LYMPH % 30 % (24-48); MEAN CORPUSCULAR HEMOGLOBIN 25 pg (25-35); MEAN CORPUSCULAR HGB CONC 32 g/dL (31-37); MEAN CORPUSCULAR VOLUME 79 fL (79-100); MONO % 5 % (0-9); NEUT % 60 % (31-73); PLATELET COUNT 261 x10^3/uL (140-400); RED BLOOD COUNT 4.86 x10^6/uL (3.50-5.40); RED CELL DISTRIBUTION WIDTH 15.6 % (11.5-14.5); WHITE BLOOD COUNT 7.1 x10^3/uL (4.0-11.0)
[2017-01-15 02:26] LABS: CALCIUM 9.1 mg/dL (8.5-10.1); CREATININE 0.9 mg/dL (0.6-1.0); GFR 86.2; POTASSIUM 3.6 mmol/L (3.5-5.1)
[2017-01-15] MEDS: FAMOTIDINE 20 MG/2 ML VIAL IVP ONE (02:28)
[2017-01-15] MEDS: ONDANSETRON PF 4 MG/2 ML VIAL. IV ONE (02:28)
[2017-01-15 02:32] LABS: ALBUMIN 3.7 g/dL (3.4-5.0); ALBUMIN/GLOBULIN RATIO 0.9 (1.0-1.7); TOTAL BILIRUBIN 0.3 mg/dL (0.2-1.0); TOTAL PROTEIN 7.7 g/dL (6.4-8.2)
[2017-01-15 03:01] VITALS: BP 114/59
[2017-01-15] MEDS ORDERED: ONDA4TAB10 SL (03:07)
[2017-01-15] MEDS ORDERED: HYDR-2758 PO (03:07)
== END 2017-01-15 03:40 | disposition home or self-care (01) ==
LOC: ER 01:20
DX: R10.33 Periumbilical pain (principal); M54.5 Low back pain; K21.9 Gastro-esophageal reflux disease without esophagitis; J45.909 Unspecified asthma, uncomplicated; G43.909 Migraine, unspecified, not intractable, without status migrainosus; Z90.49 Acquired absence of other specified parts of digestive tract; Z98.51 Tubal ligation status; Z98.890 Other specified postprocedural states; F12.10 Cannabis abuse, uncomplicated; Z88.0 Allergy status to penicillin; Z88.1 Allergy status to other antibiotic agents; Z88.5 Allergy status to narcotic agent; Z88.8 Allergy status to other drugs, medicaments and biological substances
CPT/HCPCS: 36415; 80053; 81001; 81025; 83690; 85025; 96361; 96374; 96375; J2405; J7030; S0028; 99284-25

== ENCOUNTER 2017-04-29 18:37 | Emergency (ER) | payer OTHER ==
[2017-04-29] MEDS: KETOROLAC 60 MG/2 ML INJ. IM ×2 (18:57)
== END 2017-04-29 19:18 | disposition home or self-care (01) ==
LOC: ER 18:37
DX: G89.29 Other chronic pain (principal); M54.41 Lumbago with sciatica, right side; G43.909 Migraine, unspecified, not intractable, without status migrainosus; J45.909 Unspecified asthma, uncomplicated; K21.9 Gastro-esophageal reflux disease without esophagitis; Z98.51 Tubal ligation status; Z90.49 Acquired absence of other specified parts of digestive tract; Z98.890 Other specified postprocedural states; Z88.0 Allergy status to penicillin; Z88.1 Allergy status to other antibiotic agents; Z88.5 Allergy status to narcotic agent
CPT/HCPCS: 96372; 99283-25; J1885

== ENCOUNTER 2017-05-08 07:57 | Emergency (ER) | payer OTHER ==
[2017-05-08] MEDS: IPRATRPIUM/ALBUTEROL 0.5/2.5MG 3 ML NEBU. NEB ×2 (08:25→09:05)
[2017-05-08 08:31] LABS: URINE HCG POC HCG NEGATIVE (Negative)
[2017-05-08 08:38] LABS: BILIRUBIN,URINE SMALL (NEG); CLARITY,URINE CLEAR; COLOR,URINE YELLOW; GLUCOSE,URINE NEGATIVE (NEG); NITRITE,URINE NEGATIVE (NEG); PROTEIN,URINE 100 mg/dL (NEG-TRACE)
[2017-05-08] MEDS: predniSONE 20 MG TABLET PO (08:40)
[2017-05-08 08:46] LABS: BACTERIA,URINE MODERATE /HPF (0-FEW); RBC,URINE RARE /HPF (0-2); SQUAMOUS EPITHELIAL CELL,UR MANY /LPF
[2017-05-08] MEDS: IBUPROFEN 800 MG TABLET. PO (09:18)
== END 2017-05-08 09:15 | disposition home or self-care (01) ==
LOC: ER 07:57
DX: N39.0 Urinary tract infection, site not specified (principal); J40 Bronchitis, not specified as acute or chronic; G43.909 Migraine, unspecified, not intractable, without status migrainosus; K21.9 Gastro-esophageal reflux disease without esophagitis; J45.909 Unspecified asthma, uncomplicated; Z98.51 Tubal ligation status; Z98.890 Other specified postprocedural states; Z90.49 Acquired absence of other specified parts of digestive tract; Z88.1 Allergy status to other antibiotic agents; Z88.5 Allergy status to narcotic agent
CPT/HCPCS: 71046; 81001; 81025; 87086; 94640; 99285-25; J7512; J7620